=== PATIENT | female | born 1960 | race African-American/Black ===

== ENCOUNTER → 2018-09-17 | Outpatient (CLI) | payer BC ==
[~2018-09-17] MED LIST: DARVOCET-N 1001 EACH PO; NOT SURE OF MEDS; [UNRECOGNIZED DRUG - REMARK]
== END ==
LOC: CAT 14:45
DX: R10.9 Unspecified abdominal pain (principal); M47.816 Spondylosis without myelopathy or radiculopathy, lumbar region; M43.16 Spondylolisthesis, lumbar region; Z88.8 Allergy status to other drugs, medicaments and biological substances

== ENCOUNTER → 2019-01-12 | Outpatient (CLI) | payer BC | LOC: RAD 15:18 | DX: M47.812 Spondylosis without myelopathy or radiculopathy, cervical region (principal); M25.78 Osteophyte, vertebrae; M48.02 Spinal stenosis, cervical region; M79.642 Pain in left hand; M79.641 Pain in right hand; M19.042 Primary osteoarthritis, left hand; M19.041 Primary osteoarthritis, right hand ==

== ENCOUNTER → 2020-09-18 | Outpatient (CLI) | payer OTHER | LOC: PAC 07:59 → LAB 07:59 | PROVIDERS: ATTEND Student in an Organized Health Care Education/Training Program | DX: Z01.812 Encounter for preprocedural laboratory examination (principal); Z20.822 Contact with and (suspected) exposure to COVID-19 ==

== ENCOUNTER → 2020-09-19 | Outpatient (CLI) | payer OTHER ==
[~2020-09-19] VITALS: Ht 167.6 cm; Wt 89.8 kg
--- NOTE | 2020-09-19 15:02 | P ---
[facility] [address] PROCEDURE REPORT Name: SHIVANI RESENDIZ Room #: REG [facility].#: [id number] Admission: 09/19/20 Attend Phys: Ed Stovall Discharge: Date of : 62 Report #: [id number] THIS REPORT FOR: cc: Prakash Renteria,Ed Pardo MD ~ cc: Prakash Renteria MD DATE OF SERVICE: 09/19/2020 PROCEDURE PERFORMED: Colonoscopy with polypectomies. HISTORY OF PRESENT ILLNESS: The patient is a 60-year-old female with a history of colon polyp several years ago, multiple polyps were removed at that time. She denies any blood in her stools. She does report constipation at times taking MiraLax most days. No family history of colon cancer. DESCRIPTION OF PROCEDURE: The risks and benefits of the procedure were explained to the patient, those risks including but not limited to bleeding, perforation and the risk of sedation. She understood these risks and gave informed consent. Sedation was given using propofol per anesthesia. Next, a digital rectal exam was initially performed, which was normal. Next, using a standard Olympus colonoscope, the scope was placed in the patient's anus and advanced under direct vision to the cecum. The overall prep was excellent. The cecum and ileocecal valve were normal in appearance. The ascending, transverse and descending colon were normal. Two polyps were noted in the sigmoid colon, 5-6 mm in size, both removed by snare cautery, otherwise normal. In the distal rectum, on retroflexion, a 4 mm sessile polyp was noted. This was removed by snare cautery as well. Also noted were small nonbleeding internal hemorrhoids. The scope was then withdrawn and the procedure terminated. The patient tolerated the procedure well. IMPRESSION: 1. Three small colonic polyps. 2. Small internal hemorrhoids. 3. Otherwise, normal colonoscopy. RECOMMENDATIONS: 1. Await biopsy results. 2. Repeat colonoscopy in [address] [address] PROCEDURE REPORT Name: SHIVANI RESENDIZ Room #: REG [facility] Ang#: [id number] Admission: 09/19/20 Attend Phys: Ed Stovall Discharge: Date of : 62 Report #: [id number] Thank you for allowing me to participate in her care. <ELECTRONICALLY SIGNED> By: Ed Richards MD 09/19/20 1502 [id number] Ed Richards MD /nt
--- NOTE | 2020-09-19 15:02 | P ---
[facility] [place] [address] PROCEDURE REPORT Name: SHIVANI RESENDIZ Room #: REG [facility].#: [id number] Admission: 09/19/20 Attend Phys: Ed Stovall Discharge: Date of : 62 Report #: [id number] THIS REPORT FOR: cc: Prakash Renteria,Ed Pardo MD ~ cc: Prakash Renteria MD DATE OF SERVICE: 09/19/2020 PROCEDURE PERFORMED: Upper endoscopy with biopsies. HISTORY OF PRESENT ILLNESS: The patient is a 60-year-old female who reports heartburn symptoms, was on apparently omeprazole for approximately a month with no benefit. Stopped taking that, is now taking Tums on a p.r.n. basis. She denies any dysphagia or odynophagia. No previous history of upper endoscopy. DESCRIPTION OF PROCEDURE: The risks and benefits of the procedure were explained to the patient, those risks including but not limited to bleeding, perforation and the risk of sedation. She understood these risks and gave informed consent. Sedation was given using propofol per anesthesia. Next, using a standard Olympus upper endoscope, the scope was placed in the patient's mouth and advanced under direct vision through the esophagus, stomach and into the second portion of the duodenum. The larynx was normal in appearance. The upper and mid esophagus was normal. In the distal esophagus at the GE junction, grade A erosive esophagitis was noted. No evidence of stricture. Upon entering the stomach, a small hiatal hernia was noted. Overall, the gastric mucosa was normal in the fundus and body and mild gastritis was noted in the antrum. Biopsies were obtained to rule out H. pylori. The pylorus was normal and patent. The duodenal bulb, first and second portion were all normal. The scope was then withdrawn and the procedure terminated. The patient tolerated the procedure well. IMPRESSION: 1. Grade A erosive esophagitis. 2. Small hiatal hernia. 3. Mild gastritis. 4. Otherwise, normal upper endoscopy. RECOMMENDATIONS: 1. Await biopsy results. 2. Would recommend a trial of different PPI therapy. Script for Protonix was given today. 3. We will proceed with colonoscopy next today. [address] [address] PROCEDURE REPORT Name: SHIVANI RESENDIZ Room #: REG [facility] Ang#: [id number] Admission: 09/19/20 Attend Phys: Ed Stovall Discharge: Date of : 62 Report #: [id number] Thank you for allowing me to participate in her care. <ELECTRONICALLY SIGNED> By: Ed Richards MD 09/19/20 1502 [id number] Ed Richards MD /nt
--- NOTE | 2020-09-20 17:07 | PATH ---
[facility] [address] [address] [place] [address] PATHOLOGY RPT PROCEDURE Name: SHERLY PINEDA Room #: REG [facility].#: [id number] Admission: 09/19/20 Date of : 62 Discharge: Report #: [id number] Path Case #: [id number] [facility] Accession Number: [id number] . 01 Material submitted: . PART A: gastrointestinal site - BIOPSY GASTRITIS R/O H. PYLORI PART B: sigmoid colon - SIGMOID COLON POLYP HOT SNARE X2. Modifiers: X2 PART C: rectum - RECTAL POLYP HOT SNARE . 01 Clinical history: . EGD/COLONOSCOPY HX OF POLYPS/DYSPHAGIA . 02 Diagnosis: A. Gastric mucosa, gastritis rule out H. pylori, endoscopic biopsy: - Mild reactive gastropathy. - Negative for intestinal metaplasia or atrophy. - Negative for Helicobacter pylori (properly controlled immunohistochemical stain performed). . B. Polyp x 2, sigmoid colon polyp, endoscopic biopsy: - One fragment showing a tubular adenoma without high grade dysplasia. - Second fragment showing an inflamed hyperplastic polyp without dysplasia. . C. Polyp, rectal polyp, endoscopic biopsy: - Inflammatory polyp with reactive hyperplastic crypts. - One fragment entirely comprised of lymphoid tissue. - Negative for dysplasia. (IUV/db; 09/20/2020) LBQ 09/20/2020 1313 Local . 02 Electronically signed: . Yazmin Mcconnell MD, Pathologist NPI- [id number] . 01 Gross description: . A. The specimen is received in formalin, labeled "Sherly Pineda, BX gastritis". Received are 3 segments of pale feng tissue ranging in size from 0.4 to 0.8 cm in maximum dimensions. The specimen is submitted entirely in cassette A1. . B. The specimen is received in formalin, labeled "Sheryl Pineda, sigmoid colon polyp". Received are 2 segments of pale feng tissue ranging in size from 0.4 to 0.6 cm in maximum dimensions. The specimen is submitted entirely in [place] [address] PATHOLOGY RPT PROCEDURE Name: SHERLY PINEDA Room #: REG [facility].#: [id number] Admission: 09/19/20 Date of : 62 Discharge: Report #: [id number] Path Case #: [id number] C. The specimen is received in formalin, labeled "Sherly Pineda, rectal polyp". Received are 2 segments of pale feng tissue ranging in size from 0.3 to 0.6 cm in maximum dimensions. The specimen is submitted entirely in cassette C1.([facility]; 09/19/2020) [facility] 09/19/2020 1610 Local . 02 Pathologist provided ICD-10: K31.9, D12.5, K63.5, K51.40 . 02 CPT . 124301, 969010, 469923, [id number] Specimen Comment: A courtesy copy of this report has been sent to [phone], [phone] Specimen Comment: [id number] Specimen Comment: Report sent to / DR BARNETT Performed at: [address], [place] [id number] MD Camilo Lyons MD Phone: [phone] Performed at: [address] [id number] MD Yazmin Mcconnell MD Phone: [phone]
== END | disposition home or self-care (01) ==
LOC: GI
PROVIDERS: ATTEND Specialist
DX: K59.00 Constipation, unspecified (principal); D12.5 Benign neoplasm of sigmoid colon; K64.8 Other hemorrhoids; K51.40 Inflammatory polyps of colon without complications; K31.9 Disease of stomach and duodenum, unspecified; K29.50 Unspecified chronic gastritis without bleeding; K22.10 Ulcer of esophagus without bleeding; R13.10 Dysphagia, unspecified; K44.9 Diaphragmatic hernia without obstruction or gangrene; Z86.010 Personal history of colon polyps; Z98.890 Other specified postprocedural states; Z79.899 Other long term (current) drug therapy
CPT/HCPCS: 62110; 62900

== ENCOUNTER → 2021-02-21 | Outpatient (CLI) | payer OTHER | LOC: ULTRA 14:04 | PROVIDERS: ATTEND Family Medicine | DX: M79.605 Pain in left leg (principal) ==

== ENCOUNTER → 2021-03-21 | Outpatient (CLI) | payer OTHER | LOC: CAT 03-20 14:39 | PROVIDERS: ATTEND Family Medicine | DX: R91.1 Solitary pulmonary nodule (principal); R60.9 Edema, unspecified ==